=== PATIENT | male | born 1945 | race Caucasian/White ===

== ENCOUNTER 2020-12-22 13:29 | Outpatient (REF) | payer SELFPAY | END 2020-12-22 13:30 | disposition home or self-care (01) | LOC: HO.SCI 13:29 | PROVIDERS: Visit Provider Internal Medicine | DX: Z13.89 Encounter for screening for other disorder (principal) ==

== ENCOUNTER 2021-01-06 10:01 | Outpatient (REF) | payer MEDICARE, SELFPAY | END 2021-01-06 10:02 | disposition home or self-care (01) | LOC: HO.RESP 10:01 | PROVIDERS: PCP Internal Medicine; Visit Provider Internal Medicine | DX: Z13.89 Encounter for screening for other disorder (principal) ==